=== PATIENT | female | born 1970 | race Hispanic/Latino ===

== ENCOUNTER 2018-06-28 01:22 | Emergency (ER) | payer SELFPAY ==
[2018-06-28 03:43] LABS: Absolute Lymphocytes (CBC) 2.1 K/uL (0.7-4.9); Absolute Monocytes 0.4 K/uL (0.1-1.3); Absolute Neutrophil 4.6 K/uL (1.8-8.0); Basophils % 1.1 % (0-1.3); Eosinophils % 2.3 % (0-4.4); Lymphocytes % 28.2 % (15.3-44.8); MCH 24.2 pg (27.0-35.0); MCV 75.6 fL (80-100); MPV 8.2 fL (7.6-11.3); Monocytes % 5.5 % (3.3-12.3)
[2018-06-28 03:53] LABS: Potassium 3.4 mmol/L (3.5-5.1)
[2018-06-28 04:04] LABS: Anisocytosis 2+; Blood Morphology Comment NOTED (NOT SEEN); Hypochromasia 1+; Platelet Estimate ADEQ; Urine White Blood Cell Casts OK
[2018-06-28 04:06] LABS: Urine Blood 3+ (NEG); Urine Glucose NEGATIVE (NEG); Urine Protein 2+ (NEG); Urine Specific Gravity >1.030 (1.005-1.030)
[2018-06-28] MEDS ORDERED: NA CHLORIDE 0.9% 500 ML ONE (04:25)
[2018-06-28] MEDS ORDERED: NA CHLORIDE 0.9% 1,000 ML ONE (04:25)
[2018-06-28] MEDS ORDERED: POTASSIUM CL SA 10 MEQ TAB PO ONE (05:05)
--- NOTE | 2018-06-28 07:02 | ER ---
Nurse's Notes [facility] Name: Brooke Perry Age: 48 yrs Sex: Female : 1970 Arrival Date: 06/28/2018 Time: 01:23 Bed 5 Private MD: Diagnosis: Vaginal bleeding. Anemia Presentation: 06/28 01:38 Presenting complaint: Patient states: HEAVY PERIOD WITH WEAKNESS. Transition of care: bp patient was not received from another setting of care. Onset of symptoms is unknown. Risk Assessment: Do you want to hurt yourself or someone else? Patient reports no desire to harm self or others. Initial Sepsis Screen: Does the patient meet any 2 criteria? No. Patient's initial sepsis screen is negative. Does the patient have a suspected source of infection? No. Patient's initial sepsis screen is negative. Care prior to arrival: None. 01:38 Method Of Arrival: Ambulatory bp 01:38 Acuity: ANTHONY 3 bp Triage Assessment: 01:39 General: Appears in no apparent distress. comfortable, obese, Behavior is calm, bp cooperative, appropriate for age. Pain: Denies pain. : Reports vaginal bleeding that is heavy flow. 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 - Social history:: Smoking status: Patient/guardian denies using tobacco, Patient/guardian denies using alcohol. - Ebola Screening: : Patient negative for fever greater than or equal to 101.5 degrees Fahrenheit, and additional compatible Ebola Virus Disease symptoms Patient denies exposure to infectious person Patient denies travel to an Ebola-affected area in the 21 days before illness onset No symptoms or risks identified at this time. Screenin:41 Abuse screen: Denies threats or abuse. Denies injuries from another. Nutritional bp screening: No deficits noted. Tuberculosis screening: No symptoms or risk factors identified. Fall Risk None identified. Assessment: 01:41 General: Appears in no apparent distress. comfortable, obese, Behavior is calm, bp cooperative, appropriate for age. Pain: Denies pain. Neuro: Level of Consciousness is awake, alert, obeys commands, Oriented to person, place, time, situation, Appropriate for age. Cardiovascular: No deficits noted. Respiratory: Airway is patent Respiratory effort is even, unlabored, Respiratory pattern is regular, symmetrical. GI: No deficits noted. : Reports vaginal bleeding that is heavy flow. EENT: No deficits noted. Derm: No deficits noted. Musculoskeletal: No deficits noted. Circulation, motion, and sensation intact. 01:48 Reassessment: Patient appears in no apparent distress at this time. No changes from jd3 previously documented assessment. Patient and/or family updated on plan of care and expected duration. Pain level reassessed. Patient is alert, oriented x 3, equal unlabored respirations, skin warm/dry/pink. 03:15 Reassessment: Patient appears in no apparent distress at this time. No changes from ak1 previously documented assessment. Patient and/or family updated on plan of care and expected duration. Pain level reassessed. Patient is alert, oriented x 3, equal unlabored respirations, skin warm/dry/pink. 03:15 Reassessment: pt tolerated vaginal exam well. pt informed of need to wait for US at ak1 0630.. 04:54 Reassessment: vaginal exam set up in room for ERP. ak1 06:33 Reassessment: Patient appears in no apparent distress at this time. No changes from jd3 previously documented assessment. Patient and/or family updated on plan of care and expected duration. Pain level reassessed. Patient is alert, oriented x 3, equal unlabored respirations, skin warm/dry/pink. waiting for ultrasound. Vital Signs: 01:39 BP 158 / 91; Pulse 63; Resp 14; Temp 97.2; Pulse Ox 100% ; Weight 86.18 kg; Height 5 bp ft. 7 in. (170.18 cm); 04:38 BP 162 / 88; Pulse 84; Resp 18; fu 05:00 BP 152 / 89; Pulse 86; Resp 16; Pulse Ox 100% ; fu 07:00 BP 156 / 86; Pulse 84; Resp 15; Pulse Ox 100% on R/A; Pain 0/10; hb 01:39 Body Mass Index 29.76 (86.18 kg, 170.18 cm) bp ED Course: 01:23 Patient arrived in ED. es 01:37 Lamberto Palacios MD is Attending Physician. pkl 01:38 Triage completed. bp 01:39 Arm band placed on. bp 01:41 Patient has correct armband on for positive identification. Bed in low position. Call bp light in reach. Side rails up X2. 01:48 Richie Harris, RN is Primary Nurse. jd3 03:15 Pulse ox on. NIBP on. ak1 03:51 Initial lab(s) drawn, by me, sent to lab. Inserted saline lock: 20 gauge in right rg2 antecubital area, using aseptic technique. Blood collected. 05:18 Awaiting: US at 0630. ak1 05:18 Assist provider with pelvic exam: Set up pelvic tray. Performed by Lamberto Palaciso MD Patient ak1 tolerated well. 06:57 Ultrasound completed. Patient tolerated well. aa4 06:58 US Transvaginal Study (Probe) In Process Unspecified. EDAR 07:01 Micha Hwang MD is Referral Physician. pkl 07:13 IV discontinued, intact, bleeding controlled, No redness/swelling at site. Pressure hb dressing applied. Administered Medications: 04:26 Drug: NS 0.9% 500 ml Route: IV; Rate: bolus; Site: right antecubital; fu 04:56 Follow up: Response: No adverse reaction fu 04:51 Drug: NS 0.9% 1000 ml Route: IV; Rate: 100 ml/hr; Site: right antecubital; fu 05:04 Drug: K-Dur 20 mEq Route: PO; fu 05:07 Follow up: Response: No adverse reaction fu Outcome: 07:00 Discharged to home ambulatory, with family. hb 07:00 Condition: stable 07:00 Discharge instructions given to patient, Instructed on discharge instructions, follow up and referral plans. medication usage, Demonstrated understanding of instructions, follow-up care, medications, Prescriptions given X 1. 07:01 Discharge ordered by . pkl 07:17 Patient left the ED. hb Signatures: Dispatcher [employer] EDAR Pasha Llanos [facility] Lamberto Palacios MD MD pkl Estelita Torres Amanda aa4 Leela Uriarte RN RN ak1 Breann Gold RN RN Richie Harris RN RN jd3 Umadhay, Felix, RN RN fu Peltier, Brian RN RN bp Corrections: (The following items were deleted from the chart) 04:56 04:53 Response: No adverse reaction fu fu 04:59 04:56 Response: No adverse reaction fu fu
--- NOTE | 2018-06-28 07:02 | EDPHYS ---
Physician Documentation [facility] Name: Brooke Perry Age: 48 yrs Sex: Female : 1970 Arrival Date: 06/28/2018 Time: 01:23 Bed 5 Private MD: ED Physician Lamberto Palacios HPI: 06/28 02:32 This 48 yrs old Female presents to ER via Ambulatory with complaints of pkl Dizziness, Vaginal Bleeding. 02:32 The patient presents with heavy vaginal bleeding. Onset: The symptoms/episode pkl began/occurred 3 day(s) ago. Associated signs and symptoms: Pertinent positives: dizziness and weakness. The patient has experienced similar episodes in the past, Patient said she has heavy menstrual periods for many years. 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 - Social history:: Smoking status: Patient/guardian denies using tobacco, Patient/guardian denies using alcohol. - Ebola Screening: : Patient negative for fever greater than or equal to 101.5 degrees Fahrenheit, and additional compatible Ebola Virus Disease symptoms Patient denies exposure to infectious person Patient denies travel to an Ebola-affected area in the 21 days before illness onset No symptoms or risks identified at this time. ROS: 05:00 Positive for vaginal bleeding. pkl 05:00 Eyes: Negative for injury, pain, redness, and discharge, ENT: Negative for injury, pain, and discharge, Neck: Negative for injury, pain, and swelling, Cardiovascular: Negative for chest pain, palpitations, and edema, Respiratory: Negative for shortness of breath, cough, wheezing, and pleuritic chest pain, Abdomen/GI: Negative for abdominal pain, nausea, vomiting, diarrhea, and constipation, Back: Negative for injury and pain, MS/Extremity: Negative for injury and deformity, Skin: Negative for injury, rash, and discoloration, Neuro: Negative for headache, weakness, numbness, tingling, and seizure. Exam: 05:16 Head/Face: Normocephalic, atraumatic. Eyes: Pupils equal round and reactive to light, pkl extra-ocular motions intact. Lids and lashes normal. Conjunctiva and sclera are non-icteric and not injected. Cornea within normal limits. Periorbital areas with no swelling, redness, or edema. ENT: Nares patent. No nasal discharge, no septal abnormalities noted. Tympanic membranes are normal and external auditory canals are clear. Oropharynx with no redness, swelling, or masses, exudates, or evidence of obstruction, uvula midline. Mucous membranes moist. Neck: Trachea midline, no thyromegaly or masses palpated, and no cervical lymphadenopathy. Supple, full range of motion without nuchal rigidity, or vertebral point tenderness. No Meningismus. Chest/axilla: Normal chest wall appearance and motion. Nontender with no deformity. No lesions are appreciated. Cardiovascular: Regular rate and rhythm with a normal S1 and S2. No gallops, murmurs, or rubs. Normal PMI, no JVD. No pulse deficits. Respiratory: Lungs have equal breath sounds bilaterally, clear to auscultation and percussion. No rales, rhonchi or wheezes noted. No increased work of breathing, no retractions or nasal flaring. Abdomen/GI: Soft, non-tender, with normal bowel sounds. No distension or tympany. No guarding or rebound. No evidence of tenderness throughout. Back: No spinal tenderness. No costovertebral tenderness. Full range of motion. 05:16 : Pelvic Exam: Speculum exam: mild bleeding, bimanual exam reveals an enlarged uterus, a female germination worker was present for the exam. 05:16 Musculoskeletal/extremity: Exam is negative for acute changes. 05:16 Skin: Exam negative for rash. 05:16 Neuro: Orientation: is normal, Mentation: is normal, Cranial nerves: grossly normal, Motor: is normal, Gait: is steady. Vital Signs: 01:39 BP 158 / 91; Pulse 63; Resp 14; Temp 97.2; Pulse Ox 100% ; Weight 86.18 kg; Height 5 bp ft. 7 in. (170.18 cm); 04:38 BP 162 / 88; Pulse 84; Resp 18; fu 05:00 BP 152 / 89; Pulse 86; Resp 16; Pulse Ox 100% ; fu 07:00 BP 156 / 86; Pulse 84; Resp 15; Pulse Ox 100% on R/A; Pain 0/10; hb 01:39 Body Mass Index 29.76 (86.18 kg, 170.18 cm) bp MDM: 01:37 Patient medically screened. pkl 06:50 Data reviewed: vital signs, nurses notes, lab test result(s), radiologic studies, pkl ultrasound. 06/28 01:53 Order name: Urine Dipstick--Ancillary (enter results); Complete Time: 04:07 rg2 06/28 01:53 Order name: Urine --Ancillary (enter results); Complete Time: 04:07 rg2 06/28 02:26 Order name: CBC with Diff; Complete Time: 04:07 pkl 06/28 02:26 Order name: Chem 7; Complete Time: 04:07 pkl 06/28 03:48 Order name: CBC Smear Scan; Complete Time: 04: EDMS 06/28 05:30 Order name: US Transvaginal Study (Probe) pkl Administered Medications: 04:26 Drug: NS 0.9% 500 ml Route: IV; Rate: bolus; Site: right antecubital; fu 04:56 Follow up: Response: No adverse reaction fu 04:51 Drug: NS 0.9% 1000 ml Route: IV; Rate: 100 ml/hr; Site: right antecubital; fu 05:04 Drug: K-Dur 20 mEq Route: PO; fu 05:07 Follow up: Response: No adverse reaction fu Disposition: 06/28/18 07:01 Discharged to Home. Impression: Vaginal bleeding. Anemia. - Condition is Stable. - Prescriptions for Ferrous Sulfate 325 mg (65 mg Iron) Oral Tablet - take 1 tablet by ORAL route 2 times per day; 60 tablet. - Medication Reconciliation Form, Thank You Letter, Antibiotic Education, Prescription Opioid Use form. - Follow up: Micha Hwang MD; When: 2 - 3 days; Reason: Re-evaluation by your physician. - Problem is new. - Symptoms have improved. Signatures: Dispatcher [employer] Lamberto Denson MD MD pkBreann Brown, Eloy Carty RN, RN RN fu Peltier, Brian RN RN bp Corrections: (The following items were deleted from the chart) 07:17 07:01 06/28/2018 07:01 Discharged to Home. Impression: Vaginal bleeding. Anemia. hb Condition is Stable. Forms are Medication Reconciliation Form, Thank You Letter, Antibiotic Education, Prescription Opioid Use. Follow up: Micha Hwang; When: 2 - 3 days; Reason: Re-evaluation by your physician. Problem is new. Symptoms have improved. pkl
--- NOTE | 2018-06-28 08:19 | RAD REPORT ---
EXAM DESCRIPTION: US - Transvaginal Study Probe - 06/28/2018 6:59 am CLINICAL HISTORY: Pelvic pain with vaginal bleeding COMPARISON: none FINDINGS: The uterus measures 10 x 5 x 5cm. A fibroid is not seen. The endometrial stripe measures 9 millimeters. A 2.4 centimeter right ovarian cyst is present without significant free-fluid. The left ovary was not seen. No significant free fluid is seen. IMPRESSION: 2.4 centimeter right ovarian cyst
== END 2018-06-28 07:17 | disposition home or self-care (01) ==
LOC: ER 01:22
DX: D64.9 Anemia, unspecified (principal)
CPT/HCPCS: 36415; 76830; 80048; 81003; 81025; 85025; 99284; J7030

== ENCOUNTER 2018-06-28 18:19 | Observation (INO) | payer SELFPAY ==
[2018-06-28 19:27] LABS: Hematocrit 27.9 % (36.0-45.0)
--- NOTE | 2018-06-28 20:01 | EDPHYS ---
Physician Documentation [facility] Name: Brooke Perry Age: 48 yrs Sex: Female : 1970 Arrival Date: 06/28/2018 Time: 18:21 Bed 5 Private MD: ED Physician Kale Morgan HPI: 06/28 22:06 This 48 yrs old Female presents to ER via Ambulatory with complaints of snw Vaginal Bleeding. 22:06 The patient presents with vaginal bleeding that is heavy, with clots, 3 saturated pads snw per hour. Pt seen in this ED this am. Hgb 9.9, repeat this evening 8.8. Onset: The symptoms/episode began/occurred suddenly, 3 day(s) ago. Modifying factors: The symptoms are alleviated by nothing. Associated signs and symptoms: Pertinent positives: cramping, weakness, lightheadedness. Severity of symptoms: At their worst the symptoms were moderate, severe. The patient has experienced similar episodes in the past, several times. clinic in [place]. Pt was to rec Fe transfusion x 12, rec'd 3 and then was unable to get medications. 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 - Social history:: Smoking status: Patient/guardian denies using tobacco. - Ebola Screening: : Patient negative for fever greater than or equal to 101.5 degrees Fahrenheit, and additional compatible Ebola Virus Disease symptoms Patient denies exposure to infectious person Patient denies travel to an Ebola-affected area in the 21 days before illness onset No symptoms or risks identified at this time. ROS: 22:05 Constitutional: Negative for fever, chills, and weight loss, Eyes: Negative for injury, snw pain, redness, and discharge, ENT: Negative for injury, pain, and discharge, Neck: Negative for injury, pain, and swelling, Cardiovascular: Negative for chest pain, palpitations, and edema, Respiratory: Negative for shortness of breath, cough, wheezing, and pleuritic chest pain, Back: Negative for injury and pain, : Negative for injury, discharge, and swelling, + heavy vaginal bleeding with clots MS/Extremity: Negative for injury and deformity, Skin: Negative for injury, rash, and discoloration, Neuro: Negative for headache, weakness, numbness, tingling, and seizure. 22:05 Abdomen/GI: Positive for abdominal pain. Exam: 22:04 Head/Face: Normocephalic, atraumatic. Eyes: Pupils equal round and reactive to light, snw extra-ocular motions intact. Lids and lashes normal. Conjunctiva and sclera are non-icteric and not injected, pale. Cornea within normal limits. Periorbital areas with no swelling, redness, or edema. ENT: Nares patent. No nasal discharge, no septal abnormalities noted. Tympanic membranes are normal and external auditory canals are clear. Oropharynx with no redness, swelling, or masses, exudates, or evidence of obstruction, uvula midline. Mucous membranes moist. Neck: Trachea midline, no thyromegaly or masses palpated, and no cervical lymphadenopathy. Supple, full range of motion without nuchal rigidity, or vertebral point tenderness. No Meningismus. Chest/axilla: Normal chest wall appearance and motion. Nontender with no deformity. No lesions are appreciated. Cardiovascular: Regular rate and rhythm with a normal S1 and S2. No gallops, murmurs, or rubs. Normal PMI, no JVD. No pulse deficits. Respiratory: Lungs have equal breath sounds bilaterally, clear to auscultation and percussion. No rales, rhonchi or wheezes noted. No increased work of breathing, no retractions or nasal flaring. Abdomen/GI: Soft, non-tender, with normal bowel sounds. No distension or tympany. No guarding or rebound. No evidence of tenderness throughout. Back: No spinal tenderness. No costovertebral tenderness. Full range of motion. MS/ Extremity: Pulses equal, no cyanosis. Neurovascular intact. Full, normal range of motion. Neuro: Awake and alert, GCS 15, oriented to person, place, time, and situation. Cranial nerves II-XII grossly intact. Motor strength 5/5 in all extremities. Sensory grossly intact. Cerebellar exam normal. Normal gait. Psych: Awake, alert, with orientation to person, place and time. Behavior, mood, and affect are within normal limits. 22:04 Constitutional: The patient appears alert, awake, anxious, listless, obese, pale. 22:04 Skin: Appearance: Color: pale. Vital Signs: 18:41 BP 131 / 79; Pulse 75; Resp 18; Temp 97.9; Pulse Ox 99% on R/A; Weight 86.18 kg; Height aj 5 ft. 7 in. (170.18 cm); 18:50 BP 137 / 73 LA Supine (auto/reg); Pulse 74 MON; Resp 18 S; Pulse Ox 98% on R/A; Pain jp3 4/10; 18:52 BP 133 / 83 LA Sitting (auto/reg); Pulse 76; Resp 18; Pulse Ox 98% on R/A; jp3 18:52 BP 137 / 86 LA Standing (auto/reg); Pulse 82; Resp 18 S; Pulse Ox 98% ; jp3 19:36 BP 128 / 85; Pulse 73; Pulse Ox 100% on R/A; rv 21:00 BP 133 / 84; Pulse 69; Pulse Ox 100% on R/A; rv 18:41 Body Mass Index 29.76 (86.18 kg, 170.18 cm) aj 18:50 Patient took One Midal at 1700 jp3 MDM: 18:47 Patient medically screened. snw 19:52 Data reviewed: vital signs, nurses notes. Data interpreted: Pulse oximetry: on room air snw is 100 %. Interpretation: normal. Counseling: I had a detailed discussion with the patient and/or guardian regarding: the historical points, exam findings, and any diagnostic results supporting the discharge/admit diagnosis, the presence of at least one elevated blood pressure reading (>120/80) during this emergency department visit, lab results, the need for further work-up and treatment in the hospital. Physician consultation: Sofie Ramirez MD was called at 19:52, was contacted at 19:52, regarding admission, to [facility], [facility], would like medications started, depo 150mg/ml x 1, stool softener, iron tid, regular diet. Please place in [facility] ([phone]). 06/28 18:47 Order name: Hemoglobin snw 06/28 18:47 Order name: Hematocrit; Complete Time: 19:34 snw 06/28 18:31 Order name: Orthostatics; Complete Time: 18:57 snw 06/28 18:47 Order name: Hemoglobin; Complete Time: 19:34 EDMS 06/28 19:37 Order name: Urine Dipstick--Ancillary (enter results); Complete Time: 20:17 ms 06/28 19:37 Order name: Urine --Ancillary (enter results); Complete Time: 20:17 ms Administered Medications: No medications were administered Disposition: 06/28/18 20:01 Hospitalization ordered by Sofie Ramirez for Observation. Preliminary diagnosis are Abnormal uterine and vaginal bleeding, unspecified, Anemia, unspecified. - Bed [facility] for [facility]. - Status is Observation. bb - Condition is Stable. - Problem is an acute exacerbation. - Symptoms have worsened. UTI on Admission? No Addendum: 07/13/2018 10:49 Co-signature as Attending Physician, Kale Morgan MD I agree with the assessment and k dr plan of care. Signatures: Dispatcher [employer] EDVT Lucila Ocampo, MEAT DEPARTMENT MANAGER-C MEAT DEPARTMENT MANAGER-Ckb Katina Pierre, RN Kale Hagen MD MD [facility] Mari Langley, MEAT DEPARTMENT MANAGER-C MEAT DEPARTMENT MANAGER-Csnw Sabina Olivares, RN RN bb Issac Atkinson, RN RN rv Corrections: (The following items were deleted from the chart) 06/28 20:04 20:01 Hospitalization Ordered by Sofie Ramirez MD for Observation. Preliminary diagnosis snw is Abnormal uterine and vaginal bleeding, unspecified; Anemia, unspecified. Bed requested for Telemetry/MedSurg (observation). Status is Observation. Condition is Stable. Problem is an acute exacerbation. Symptoms have worsened. UTI on Admission? No. snw 20:04 20:04 06/28/2018 20:01 Hospitalization Ordered by Sofie Ramirez MD for Observation. snw Preliminary diagnosis is Abnormal uterine and vaginal bleeding, unspecified; Anemia, unspecified. Bed requested for Telemetry/MedSurg (observation). Status is Observation. Condition is Stable. Problem is an acute exacerbation. Symptoms have worsened. UTI on Admission? No. snw 20:13 20:04 06/28/2018 20:01 Hospitalization Ordered by Sofie Ramirez MD for Observation. kb Preliminary diagnosis is Abnormal uterine and vaginal bleeding, unspecified; Anemia, unspecified. Bed requested for Telemetry/MedSurg (observation). Status is Observation. Condition is Stable. Problem is an acute exacerbation. Symptoms have worsened. UTI on Admission? No. snw 20:25 20:13 06/28/2018 20:01 Hospitalization Ordered by Sofie Ramirez MD for Observation. snw Preliminary diagnosis is Abnormal uterine and vaginal bleeding, unspecified; Anemia, unspecified. Bed requested for [facility]. Status is Observation. Condition is Stable. Problem is an acute exacerbation. Symptoms have worsened. UTI on Admission? No. kb 21:34 20:25 06/28/2018 20:01 Hospitalization Ordered by Sofie Ramirez MD for Observation. rv Preliminary diagnosis is Abnormal uterine and vaginal bleeding, unspecified; Anemia, unspecified. Bed requested for [facility]. Status is Observation. Condition is Stable. Problem is an acute exacerbation. Symptoms have worsened. UTI on Admission? No. snw 23:19 21:34 06/28/2018 20:01 Hospitalization Ordered by Sofie Ramirez MD for Observation. bb Preliminary diagnosis is Abnormal uterine and vaginal bleeding, unspecified; Anemia, unspecified. Bed requested for [facility]. Status is Observation. Condition is Stable. Problem is an acute exacerbation. Symptoms have worsened. UTI on Admission? No. rv
--- NOTE | 2018-06-28 20:01 | ER ---
Nurse's Notes [facility] Name: Brooke Perry Age: 48 yrs Sex: Female : 1970 Arrival Date: 06/28/2018 Time: 18:21 Bed 5 Private MD: Diagnosis: Abnormal uterine and vaginal bleeding, unspecified;Anemia, unspecified Presentation: 06/28 18:39 Presenting complaint: Patient states: Heavy vaginal bleeding for 2 days. Seen in ER aj yesterday for same complaint, reports bleeding has increased. Transition of care: patient was not received from another setting of care. Onset of symptoms was June 26, 2018. Risk Assessment: Do you want to hurt yourself or someone else? Patient reports no desire to harm self or others. Initial Sepsis Screen: Does the patient meet any 2 criteria? No. Patient's initial sepsis screen is negative. Does the patient have a suspected source of infection? No. Patient's initial sepsis screen is negative. Care prior to arrival: None. 18:39 Method Of Arrival: Ambulatory aj 18:39 Acuity: ANTHONY 3 aj Triage Assessment: 18:41 General: Appears in no apparent distress. comfortable, Behavior is calm, cooperative, aj appropriate for age. Pain: Complains of pain in pelvis. Neuro: Level of Consciousness is awake, alert, obeys commands, Oriented to person, place, time, situation, Appropriate for age. Respiratory: Airway is patent Respiratory effort is even, unlabored, Respiratory pattern is regular, symmetrical. : Reports vaginal bleeding that is with clots, heavy flow. Derm: Skin is intact, is healthy with good turgor, Skin is pale. 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 - Social history:: Smoking status: Patient/guardian denies using tobacco. - Ebola Screening: : Patient negative for fever greater than or equal to 101.5 degrees Fahrenheit, and additional compatible Ebola Virus Disease symptoms Patient denies exposure to infectious person Patient denies travel to an Ebola-affected area in the 21 days before illness onset No symptoms or risks identified at this time. Screenin:46 Abuse screen: Denies threats or abuse. Denies injuries from another. Nutritional rv screening: No deficits noted. Tuberculosis screening: No symptoms or risk factors identified. Fall Risk None identified. Assessment: 18:44 General: Appears in no apparent distress. comfortable, Behavior is calm, cooperative. rv Pain: Denies pain. Neuro: Level of Consciousness is awake, alert, obeys commands, Oriented to person, place, time. Cardiovascular: Capillary refill < 3 seconds. Respiratory: Airway is patent. GI: No signs and/or symptoms were reported involving the gastrointestinal system. : No signs and/or symptoms were reported regarding the genitourinary system. : Reports vaginal bleeding that is heavy flow. EENT: No signs and/or symptoms were reported regarding the EENT system. Derm: Skin is intact. Musculoskeletal: No signs and/or symptoms reported regarding the musculoskeletal system. 20:59 Reassessment: Patient appears in no apparent distress at this time. Patient and/or rv family updated on plan of care and expected duration. Pain level reassessed. Patient is alert, oriented x 3, equal unlabored respirations, skin warm/dry/pink. PATIENT IS COMFORTABLE LYING ON BED,. Vital Signs: 18:41 BP 131 / 79; Pulse 75; Resp 18; Temp 97.9; Pulse Ox 99% on R/A; Weight 86.18 kg; Height aj 5 ft. 7 in. (170.18 cm); 18:50 BP 137 / 73 LA Supine (auto/reg); Pulse 74 MON; Resp 18 S; Pulse Ox 98% on R/A; Pain jp3 4/10; 18:52 BP 133 / 83 LA Sitting (auto/reg); Pulse 76; Resp 18; Pulse Ox 98% on R/A; jp3 18:52 BP 137 / 86 LA Standing (auto/reg); Pulse 82; Resp 18 S; Pulse Ox 98% ; jp3 19:36 BP 128 / 85; Pulse 73; Pulse Ox 100% on R/A; rv 21:00 BP 133 / 84; Pulse 69; Pulse Ox 100% on R/A; rv 18:41 Body Mass Index 29.76 (86.18 kg, 170.18 cm) aj 18:50 Patient took One Midal at 1700 jp3 ED Course: 18:21 Patient arrived in ED. rg4 18:40 Triage completed. aj 18:41 Arm band placed on right wrist. Patient placed in an exam room. aj 18:46 Patient has correct armband on for positive identification. Placed in gown. Bed in low rv position. Call light in reach. Side rails up X 1. Adult w/ patient. Pulse ox on. NIBP on. 18:47 Mari Langley FNP-C is PHCP. snw 18:47 Kale Morgan MD is Attending Physician. snw 19:05 Initial lab(s) drawn, by ny, sent to lab. Inserted saline lock: 22 gauge in right jp3 forearm, using aseptic technique. Blood collected. Missed attempt(s): 22 gauge in right forearm. Bleeding controlled, band aid applied, catheter tip intact. 19:10 Urine collected: clean catch specimen, clear, blood tinged. jp3 19:26 Hemoglobin Sent. jp3 19:26 Hematocrit Sent. jp3 19:26 Hemoglobin Sent. jp3 19:59 Sofie Ramirez MD is Hospitalizing Provider. snw 21:14 No provider procedures requiring assistance completed. Patient admitted, IV remains in rv place. intact. Administered Medications: No medications were administered Outcome: 20:01 Decision to Hospitalize by Provider. snw 21:14 Admitted to L \T\ D, accompanied by [facility], via stretcher, room 270, with chart, Report rv called to IDDRISU 21:14 Condition: stable 21:14 Instructed on the need for admit. 21:34 Patient left the ED. rv 23:19 Patient left the ED. bb Signatures: Katina Pierre, RN RN Mari Leos FNP-C FNP-Csnw Sabina Olivares RN RN Dione Lr rg4 Issac Atkinson RN RN Ernst Enrique jp3
[2018-06-28 20:12] LABS: Urine Blood 3+ (NEG); Urine Glucose NEGATIVE (NEG); Urine Protein 3+ (NEG); Urine Specific Gravity 1.025 (1.005-1.030)
[2018-06-28] MEDS ORDERED: DOCUSATE NA 100 MG CAP PO PRN (21:36)
[2018-06-28] MEDS ORDERED: MEDROXYPROGEST ACET 150 MG/ML IM SCH (21:36)
[2018-06-28] MEDS: FERROUS SULFATE 325 MG TAB PO SCH (22:34)
[2018-06-28] MEDS ORDERED: ZOLPIDEM TARTRATE 5 MG TABLET PO PRN (22:35)
[2018-06-28] MEDS ORDERED: IBUPROFEN 400 MG TAB PO PRN (22:35)
[2018-06-28] MEDS ORDERED: Ringers Lactate 1,000 ML IV SCH (23:00)
[2018-06-29] MEDS: FERROUS SULFATE 325 MG TAB PO SCH (06:55)
--- NOTE | 2018-06-30 02:52 | HP ---
Date of Admission: 06/28/2018 History Of Present Illness: Brooke is a 48-year-old, 7, para 6-0-1-6, LMP June 26, 2018, w gopal presents to the hospital for heavy vaginal bleeding that has been causing anemia. The patient pre sented to the emergency room with vaginal bleeding that is heavy with clots and was saturating multip le pads. She was seen in the emergency department twice. First time she had a hemoglobin of 9.9, th e second time it was 8.8. Her bleeding is also causing some severe cramping. She denies any pain th at required any medication. She states that she was given some pills from another clinic and clue we re they told her to take some medicine for 10 days and after this, she started having heavy bleeding after the pills were completed. She states she feels a little tired, but not having any episodes of syncope. Past Medical History: Anemia. Past Surgical History: section x3 and a cholecystectomy and tubal ligation. Obstetric History: Three vaginal births, three sections, one miscarriage. Her last deliver y was in 2008. She has not seen an CLINICAL NURSING INSTRUCTOR since she last delivered. Social History: She denies tobacco, alcohol or drug use. She is . She does not work at this time. Review of Systems: Negative except for HPI. Physical Examination: Vital Signs: Blood pressure of 120/65, pulse of 63, respirations 18, temperature 97.1, O2 saturation is 100%. Pain scale is 0/10. General: Patient resting comfortably in bed. Head and Neck: Normocephalic, atraumatic. Heart: Regular rate and rhythm. Abdomen: Soft and nontender. No masses palpable. Extremities: Bilateral Lower Extremities, no clubbing, cyanosis, or edema. Vaginal: Normal external female genitalia. There is blood within the vaginal vault. No clots noted . Cervix closed, nontender. Uterus palpates normally. No masses palpable. Laboratory Findings: Hemoglobin 8.8, hematocrit 27.9. White blood cell count 7.4, platelets are 294 . Assessment And Plan: Brooke Perry is a 48-year-old, 7, para 6-0-1-6, LMP 06/26/2018, who pr esents to the emergency room for dysfunctional uterine bleeding causing anemia. Patient will be kept for observation. Vaginal ultrasound has been ordered. A 150 mg of Depo-Provera have been ordered t o be given to the patient. We will continue monitoring and no need [facility] ZIMMER Voice ID: [id number]
--- NOTE | 2018-06-30 03:10 | SS ---
Date of Discharge: 06/29/2018 Brooke Perry was kept in the hospital for observation due to heavy vaginal bleeding that was causing anemia. The patient had an ultrasound performed. Ultrasound did not find any masses. The uterus i s measuring normal size 10 x 5 x 5 cm. No fibroids were present. Endometrial lining was normal. A 2.4 cm right ovarian cyst was present which was clear. The patient was given Depo-Provera last night when she was in the emergency department and she states that her bleeding has improved significantly and she is not feeling any pain at this time. The patient recommended to follow up in the office as soon as possible once her insurance is approved so that way she can be evaluated for possible endome trial ablation. The patient voices understanding. Encouraged the patient to take iron 3 times a day . Make sure she is taking the stool softener to prevent constipation. The patient's the bleeding sh ould be managed with the Depo-Provera that she has been given. If she continues to have issues, she has been given bleeding precautions. Otherwise, the patient will follow up with me in the office in 3 weeks. MESHA Voice ID: [id number] Report ID: [id number]
== END 2018-06-29 10:30 | disposition home or self-care (01) ==
LOC: ER 18:19 → ERHOLD 20:20 → 2ND-WC 21:16
PROVIDERS: ADMIT Student in an Organized Health Care Education/Training Program; ATTEND Student in an Organized Health Care Education/Training Program
DX: N93.8 Other specified abnormal uterine and vaginal bleeding (principal); N83.201 Unspecified ovarian cyst, right side; D64.9 Anemia, unspecified
CPT/HCPCS: 36415; 81003; 81025; 85014; 85018; 99285; G0378; J1050

== ENCOUNTER 2018-07-12 04:20 | Emergency (ER) | payer SELFPAY ==
--- NOTE | 2018-07-12 05:03 | EDPHYS ---
Physician Documentation [facility] Name: Brooke Perry Age: 48 yrs Sex: Female : 1970 Arrival Date: 07/12/2018 Time: 04:23 Bed 16 Private MD: ED Physician Julián Grimes HPI: 07/12 04:59 This 48 yrs old Female presents to ER via Ambulatory with complaints of tw4 Irregular Pulse. 04:59 The patient presents with a history of irregular heart beat. Context: The symptoms tw4 occur during sleep. Onset: The symptoms/episode began/occurred today. Duration: The patient or guardian reports a single episode, that is now resolved. Modifying factors: The symptoms are aggravated by nothing. The symptoms are alleviated by nothing. Associated signs and symptoms: The patient has no apparent associated signs or symptoms. Severity of symptoms: At their worst the symptoms were moderate in the emergency department the symptoms are unchanged. The patient has not experienced similar symptoms in the past. DATABASE TESTER: 04:37 LMP N/A - bb Historical: - Allergies: 04:37 No Known Allergies; bb - Home Meds: 04:37 None [Active]; bb - PSHx: 04:37 Tubal ligation; Cholecystectomy; ; oophorectomy; bb - Immunization history:: Adult Immunizations up to date. - Social history:: Smoking status: Patient/guardian denies using tobacco, Patient/guardian denies using alcohol, street drugs. - Ebola Screening: : No symptoms or risks identified at this time. ROS: 04:59 Constitutional: Negative for fever, chills, and weight loss, Respiratory: Negative for tw4 shortness of breath, cough, wheezing, and pleuritic chest pain, Abdomen/GI: Negative for abdominal pain, nausea, vomiting, diarrhea, and constipation, Back: Negative for injury and pain, MS/Extremity: Negative for injury and deformity, Skin: Negative for injury, rash, and discoloration, Neuro: Negative for headache, weakness, numbness, tingling, and seizure. 04:59 Cardiovascular: Positive for palpitations, Negative for chest pain, edema, orthopnea. Exam: 04:59 Head/Face: Normocephalic, atraumatic. Chest/axilla: Normal chest wall appearance and tw4 motion. Nontender with no deformity. No lesions are appreciated. Cardiovascular: Regular rate and rhythm with a normal S1 and S2. No gallops, murmurs, or rubs. Normal PMI, no JVD. No pulse deficits. Respiratory: Lungs have equal breath sounds bilaterally, clear to auscultation and percussion. No rales, rhonchi or wheezes noted. No increased work of breathing, no retractions or nasal flaring. Abdomen/GI: Soft, non-tender, with normal bowel sounds. No distension or tympany. No guarding or rebound. No evidence of tenderness throughout. 04:59 Constitutional: The patient appears anxious. Vital Signs: 04:37 BP 150 / 80; Pulse 94; Resp 18 S; Temp 99(O); Pulse Ox 99% on R/A; Weight 86.18 kg (R); bb Height 5 ft. 7 in. (170.18 cm) (R); 04:37 Body Mass Index 29.76 (86.18 kg, 170.18 cm) bb MDM: 04:45 Patient medically screened. tw4 04:59 Differential diagnosis: arrythmia, dehydration, stress disorder. Data reviewed: vital tw4 signs, nurses notes. 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 Counseling: I had a detailed discussion with the patient and/or guardian regarding: the historical points, exam findings, and any diagnostic results supporting the discharge/admit diagnosis. EC:01 Rate is 87 beats/min. Rhythm is regular. QRS [place] is Normal. MI interval is normal. QRS tw4 interval is normal. QT interval is normal. No Q waves. T waves are Normal. No ST changes noted. Clinical impression: Normal ECG. Interpreted by me. Reviewed by me. Administered Medications: No medications were administered Disposition: 07/12/18 05:02 Discharged to Home. Impression: Palpitations, Hypertension to be confirmed. - Condition is Stable. - Discharge Instructions: Palpitations, Hypertension, Bnpo-[id number]. - Family Work Release, Medication Reconciliation Form, Thank You Letter, Antibiotic Education, Prescription Opioid Use form. - Follow up: Private Physician; When: Upon discharge from the Emergency Department; Reason: Further diagnostic work-up, Recheck today's complaints, Continuance of care. - Problem is new. - Symptoms have improved. Signatures: Kylah Hamilton RN RN aa1 Sabina Olivares RN RN bb Julián Grimes MD MD tw4 Corrections: (The following items were deleted from the chart) 05:23 05:02 07/12/2018 05:02 Discharged to Home. Impression: Palpitations; Hypertension to be aa1 confirmed. Condition is Stable. Forms are Medication Reconciliation Form, Thank You Letter, Antibiotic Education, Prescription Opioid Use. Follow up: Private Physician; When: Upon discharge from the Emergency Department; Reason: Further diagnostic work-up, Recheck today's complaints, Continuance of care. Problem is new. Symptoms have improved. tw4
--- NOTE | 2018-07-12 05:03 | ER ---
Nurse's Notes [facility] Name: Brooke Perry Age: 48 yrs Sex: Female : 1970 Arrival Date: 07/12/2018 Time: 04:23 Bed 16 Private MD: Diagnosis: Palpitations;Hypertension to be confirmed Presentation: 07/12 04:34 Presenting complaint: Patient states: she woke up and could feel a pulse in her left bb arm with seemed fast pt has not had this before pt was recently here for abnormal vaginal bleeding and was given a depo shot. Transition of care: patient was not received from another setting of care. Onset of symptoms was July 12, 2018. Risk Assessment: Do you want to hurt yourself or someone else? Patient reports no desire to harm self or others. Initial Sepsis Screen: Does the patient meet any 2 criteria? No. Patient's initial sepsis screen is negative. Does the patient have a suspected source of infection? No. Patient's initial sepsis screen is negative. Care prior to arrival: None. 04:34 Method Of Arrival: Ambulatory bb 04:34 Acuity: ANTHONY 4 bb ACUTE CARE ASSISTANT: 04:37 LMP N/A - bb Historical: - Allergies: 04:37 No Known Allergies; bb - Home Meds: 04:37 None [Active]; bb - PSHx: 04:37 Tubal ligation; Cholecystectomy; ; oophorectomy; bb - Immunization history:: Adult Immunizations up to date. - Social history:: Smoking status: Patient/guardian denies using tobacco, Patient/guardian denies using alcohol, street drugs. - Ebola Screening: : No symptoms or risks identified at this time. Screenin:36 Abuse screen: Denies threats or abuse. Nutritional screening: No deficits noted. jb4 Tuberculosis screening: No symptoms or risk factors identified. Fall Risk None identified. Assessment: 04:36 General: Appears in no apparent distress. comfortable, Behavior is calm, cooperative, jb4 appropriate for age. Pain: Complains of pain in abdomen Pain does not radiate. Pain currently is 4 out of 10 on a pain scale. at worst was 7 out of 10 on a pain scale. Quality of pain is described as crampy, Pain began 1 day ago. Is continuous. Neuro: Level of Consciousness is awake, alert, obeys commands, Oriented to person, place, time, situation. Cardiovascular: Denies chest pain, Heart tones S1 S2 present Patient's skin is warm and dry. Rhythm is sinus rhythm. Respiratory: Airway is patent Respiratory effort is even, unlabored, Respiratory pattern is regular, symmetrical, Breath sounds are clear bilaterally. GI: Abdomen is obese, Bowel sounds present X 4 quads. Abd is soft and non tender in left upper quadrant Abdomen is tender to palpation in right upper quadrant, right lower quadrant and left lower quadrant. : No signs and/or symptoms were reported regarding the genitourinary system. EENT: No signs and/or symptoms were reported regarding the EENT system. Derm: Skin is intact, Skin is pink, warm \T\ dry. Musculoskeletal: No signs and/or symptoms reported regarding the musculoskeletal system. 05:20 Reassessment: Patient appears in no apparent distress at this time. Patient is alert, aa1 oriented x 3, equal unlabored respirations, skin warm/dry/pink. Discussed d/c \T\ f/u instructions with pt \T\ family; denies questions or concerns at this time. Vital Signs: 04:37 BP 150 / 80; Pulse 94; Resp 18 S; Temp 99(O); Pulse Ox 99% on R/A; Weight 86.18 kg (R); bb Height 5 ft. 7 in. (170.18 cm) (R); 04:37 Body Mass Index 29.76 (86.18 kg, 170.18 cm) bb ED Course: 04:23 Patient arrived in ED. es 04:26 Terrence Luong, RN is Primary Nurse. jb4 04:36 Triage completed. bb 04:36 Patient has correct armband on for positive identification. Bed in low position. Call jb4 light in reach. Side rails up X 1. satellite project site monitor on. Pulse ox on. NIBP on. 04:36 Patient maintains SpO2 saturation greater than 95% on room air. jb4 04:37 Arm band placed on Patient placed in an exam room, in the treatment room. bb 04:45 Julián Grimes MD is Attending Physician. tw4 05:00 EKG done, by ED staff, reviewed by Julián Grimes MD. aa1 05:20 No provider procedures requiring assistance completed. Patient did not have IV access aa1 during this emergency room visit. Administered Medications: No medications were administered Outcome: 05:02 Discharge ordered by . twMojgan 05:23 Discharged to home ambulatory, with family. aa1 05:23 Condition: good 05:23 Discharge instructions given to patient, Instructed on discharge instructions, follow up and referral plans. Demonstrated understanding of instructions, follow-up care. 05:23 Patient left the ED. aa1 Signatures: Kylah Hamilton RN RN aa1 Estelita Torres Brenda RN RN Terrence Littlejohn RN RN jb4 Julián Grimes MD MD tw4
--- NOTE | 2018-07-12 16:18 | EKG ---
Test Date: 2018-07-12 Test Time: 04:38:51 Immigration Officer: ADIS MEASUREMENT RESULTS: Intervals: Rate: 87 GA: 142 QRSD: 90 QT: 376 QTc: 452 Electra: P: 30 GA: 142 QRS: -2 T: -8 INTERPRETIVE STATEMENTS: Normal sinus rhythm Normal ECG Compared to ECG 08/09/2017 10:48:24 ST (T wave) deviation no longer present Electronically Signed On 07-12-18 16:14:38 CDT by Romel Flanagan
== END 2018-07-12 05:23 | disposition home or self-care (01) ==
LOC: ER 04:20
DX: R00.2 Palpitations (principal)
CPT/HCPCS: 93005; 99284

== ENCOUNTER 2018-07-15 14:09 | Emergency (ER) | payer SELFPAY ==
[2018-07-15] MEDS ORDERED: NA CHLORIDE 0.9% 1,000 ML ONE (15:29)
[2018-07-15 15:36] LABS: Absolute Lymphocytes (CBC) 0.5 K/uL (0.7-4.9); Absolute Monocytes 0.4 K/uL (0.1-1.3); Absolute Neutrophil 10.2 K/uL (1.8-8.0); Basophils % 0.3 % (0-1.3); Eosinophils % 0.8 % (0-4.4); Hematocrit 34.2 % (36.0-45.0); Lymphocytes % 4.7 % (15.3-44.8); MCH 26.6 pg (27.0-35.0); MCV 83.2 fL (80-100); MPV 8.1 fL (7.6-11.3); Monocytes % 3.8 % (3.3-12.3); RBC Red Blood Cell Count 4.11 M/uL (3.86-4.86)
[2018-07-15 15:46] LABS: Urine Bacteria <20 /HPF (<20); Urine Culture Reflex Order NOT NEEDED; Urine RBC >50 /HPF (NONE SEEN)
[2018-07-15 15:48] LABS: Albumin 3.9 g/dL (3.4-5.0); Bilirubin Direct 0.1 mg/dL (0-0.2); Bilirubin Total 0.5 mg/dL (0.2-1.0); Protein, Total 8.6 g/dL (6.4-8.2)
[2018-07-15 16:59] LABS: Platelet Estimate ADEQ
[2018-07-15 17:00] LABS: Anisocytosis 2+; Blood Morphology Comment NOTED (NOT SEEN)
[2018-07-15 17:06] LABS: Macrocytosis 2+
--- NOTE | 2018-07-15 17:10 | EDPHYS ---
Physician Documentation [facility] Name: Brooke Perry Age: 48 yrs Sex: Female : 1970 Arrival Date: 07/15/2018 Time: 14:13 Bed 20 Private MD: ED Physician Kale Morgan HPI: 07/15 15:19 This 48 yrs old Female presents to ER via Ambulatory with complaints of jmm Diarrhea. 15:19 The patient presents to the emergency department with diarrhea. Onset: The jmm symptoms/episode began/occurred today. Possible causes: unknown. This is a 48 year old female with a history of anemia that presents to the ED with multuiple episodes of diarrhea today. Patient denies abdominal pain, denies recent travel, denies recent abx use, denies infectious exposure. . 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 - Social history:: Smoking status: Patient/guardian denies using tobacco. - Ebola Screening: : No symptoms or risks identified at this time. ROS: 15:19 Constitutional: Negative for fever, chills, and weight loss, Cardiovascular: Negative jmm for chest pain, palpitations, and edema, Respiratory: Negative for shortness of breath, cough, wheezing, and pleuritic chest pain. 15:19 MS/Extremity: Negative for injury and deformity, Skin: Negative for injury, rash, and discoloration, Neuro: Negative for headache, weakness, numbness, tingling, and seizure. 15:19 Abdomen/GI: Positive for diarrhea. 15:19 All other systems are negative. Exam: 15:19 Head/Face: atraumatic. jmm 15:19 Constitutional: The patient appears in no acute distress, alert, awake. 15:19 Cardiovascular: Rate: normal, Rhythm: regular. 15:19 Respiratory: the patient does not display signs of respiratory distress, Respirations: normal, Breath sounds: are clear throughout. 15:19 Abdomen/GI: Inspection: abdomen appears normal, Bowel sounds: normal, Palpation: abdomen is soft and non-tender, in all quadrants. 15:19 Back: ROM is normal. 15:19 Musculoskeletal/extremity: ROM: intact in all extremities. 15:19 Skin: Appearance: Color: normal in color. 15:19 Neuro: Orientation: is normal, Mentation: is normal, Memory: is normal. 15:19 Psych: Behavior/mood is pleasant, cooperative. Vital Signs: 14:19 BP 120 / 79; Pulse 88; Resp 16; Temp 97.5; Pulse Ox 100% on R/A; Weight 86.18 kg; la1 15:23 BP 118 / 73; Pulse 79; Resp 16; Pulse Ox 100% ; mh5 16:09 BP 120 / 63; Pulse 78; Resp 18; Pulse Ox 100% on R/A; Pain 0/10; em 17:10 BP 117 / 75; Pulse 68; Resp 18; Pulse Ox 100% on R/A; Pain 0/10; em MDM: 15:19 Patient medically screened. [facility] 17:04 Data reviewed: vital signs, nurses notes. Counseling: I had a detailed discussion with maryse the patient and/or guardian regarding: the historical points, exam findings, and any diagnostic results supporting the discharge/admit diagnosis, the need for outpatient follow up, to return to the emergency department if symptoms worsen or persist or if there are any questions or concerns that arise at home. 17:12 ED course: Patient has no abdominal pain on palpation on reevaluation. patient states jmm feel better. Patient given strict return precautions. Patient understood and agrees with the plan of care. . 07/15 14:56 Order name: Amylase, Serum; Complete Time: 16:00 [facility] 07/15 14:56 Order name: Basic Metabolic Panel; Complete Time: 16:00 [facility] 07/15 14:56 Order name: CBC with Diff; Complete Time: 17:12 [facility] 07/15 14:56 Order name: Creatinine for Radiology; Complete Time: 16:00 [facility] 07/15 14:56 Order name: Hepatic Function; Complete Time: 16:00 [facility] 07/15 14:56 Order name: Lipase; Complete Time: 16:00 [facility] 07/15 14:56 Order name: Urine Microscopic Only; Complete Time: 16:00 [facility] 07/15 14:56 Order name: IV Saline Lock; Complete Time: 15:26 [facility] 07/15 14:56 Order name: Labs collected and sent; Complete Time: 15:26 [facility] 07/15 14:56 Order name: Urine Dipstick-Ancillary (obtain specimen); Complete Time: 15:11 [facility] 07/15 15:20 Order name: Urine Dipstick--Ancillary (enter results) 07/15 15:20 Order name: Urine --Ancillary (enter results) 07/15 16:03 Order name: Manual Differential; Complete Time: 17:12 EDMS Administered Medications: 15:31 Drug: NS 0.9% 1000 ml Route: IV; Rate: 1 bolus; Site: left antecubital; em 17:00 Follow up: Response: No adverse reaction; IV Status: Completed infusion; IV Intake: em 1000ml Disposition: 18:35 Co-signature as Attending Physician, Kale Morgan MD I agree with the assessment and kdr plan of care. Disposition: 07/15/18 17:09 Discharged to Home. Impression: Diarrhea, unspecified. - Condition is Stable. - Discharge Instructions: Food Choices to Help Relieve Diarrhea, Adult, Diarrhea, Adult. - Prescriptions for Zofran 4 mg Oral Tablet - take 1 tablet by ORAL route every 12 hours As needed; 20 tablet. - Medication Reconciliation Form, Thank You Letter, Antibiotic Education, Prescription Opioid Use form. - Follow up: Joseluis Vargas MD; When: As needed; Reason: Recheck today's complaints, Continuance of care, Re-evaluation by your physician. - Notes: Please follow up with your primary care provider or gastroenterology for further evaluation. Please return to the Emergency Department if you develop abdominal pain, vomiting, or fever. Signatures: Dispatcher [employer] [facility] Kale Morgan MD MD kdr Mickail, Joel, PA PA [facility] Wagner Tee, INSPECTOR COLD WORKING INSPECTOR COLD WORKING em Gray Rowley RN RN la1 Corrections: (The following items were deleted from the chart) 17:32 17:09 07/15/2018 17:09 Discharged to Home. Impression: Diarrhea, unspecified. Condition em is Stable. Forms are Medication Reconciliation Form, Thank You Letter, Antibiotic Education, Prescription Opioid Use. Follow up: Joseluis Vargas; When: As needed; Reason: Recheck today's complaints, Continuance of care, Re-evaluation by your physician. [facility]
--- NOTE | 2018-07-15 17:10 | ER ---
Nurse's Notes [facility] Name: Brooke Perry Age: 48 yrs Sex: Female : 1970 Arrival Date: 07/15/2018 Time: 14:13 Bed 20 Private MD: Diagnosis: Diarrhea, unspecified Presentation: 07/15 14:18 Presenting complaint: Patient states: Diarrhea and vomiting since this morning, mild la1 abd pain. Transition of care: patient was not received from another setting of care. Onset of symptoms was July 15, 2018. Risk Assessment: Do you want to hurt yourself or someone else? Patient reports no desire to harm self or others. Initial Sepsis Screen: Does the patient meet any 2 criteria? No. Patient's initial sepsis screen is negative. Does the patient have a suspected source of infection? No. Patient's initial sepsis screen is negative. Care prior to arrival: None. 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 - Social history:: Smoking status: Patient/guardian denies using tobacco. - Ebola Screening: : No symptoms or risks identified at this time. Screenin:45 Abuse screen: Denies threats or abuse. Nutritional screening: No deficits noted. em Tuberculosis screening: No symptoms or risk factors identified. Fall Risk None identified. Assessment: 14:50 General: Appears in no apparent distress. comfortable, Behavior is calm, cooperative. em Pain: Denies pain. Neuro: Level of Consciousness is awake, alert, obeys commands, Oriented to person, place, time, situation, Reports weakness Denies dizziness. Cardiovascular: Denies chest pain, lightheadedness, palpitations, shortness of breath, Capillary refill < 3 seconds Patient's skin is warm and dry. Respiratory: Airway is patent Respiratory effort is even, unlabored, Respiratory pattern is regular, symmetrical. GI: Abdomen is flat, Bowel sounds present X 4 quads. Abd is soft and non tender X 4 quads. Reports diarrhea, vomiting. : No signs and/or symptoms were reported regarding the genitourinary system. EENT: No signs and/or symptoms were reported regarding the EENT system. Derm: Skin is intact, Skin is pink, warm \T\ dry. Musculoskeletal: Range of motion: intact in all extremities. 16:10 Reassessment: Patient appears in no apparent distress at this time. Patient and/or em family updated on plan of care and expected duration. Pain level reassessed. Patient is alert, oriented x 3, equal unlabored respirations, skin warm/dry/pink. Patient denies pain at this time. 17:20 Reassessment: Patient appears in no apparent distress at this time. Patient and/or em family updated on plan of care and expected duration. Pain level reassessed. Patient is alert, oriented x 3, equal unlabored respirations, skin warm/dry/pink. Patient denies pain at this time. Patient states feeling better. Vital Signs: 14:19 BP 120 / 79; Pulse 88; Resp 16; Temp 97.5; Pulse Ox 100% on R/A; Weight 86.18 kg; la1 15:23 BP 118 / 73; Pulse 79; Resp 16; Pulse Ox 100% ; mh5 16:09 BP 120 / 63; Pulse 78; Resp 18; Pulse Ox 100% on R/A; Pain 0/10; em 17:10 BP 117 / 75; Pulse 68; Resp 18; Pulse Ox 100% on R/A; Pain 0/10; em ED Course: 14:13 Patient arrived in ED. mr 14:18 Triage completed. la1 14:19 Arm band placed on left wrist. [facility] 14:52 Brooks Baker [facility] 14:52 Kale Morgan MD is Attending Physician. [facility] 15:00 Initial lab(s) drawn, by nj, sent to lab. Inserted saline lock: 20 gauge in left em antecubital area, using aseptic technique. Blood collected. 15:05 Wagner Tee LVN is Primary Nurse. 15:11 Urine collected: clean catch specimen, khadra colored. [facility] 15:11 Urine Microscopic Only Sent. [facility] 15:21 Patient has correct armband on for positive identification. Bed in low position. Call [facility] light in reach. Adult w/ patient. Pulse ox on. NIBP on. 15:21 Urine --Ancillary (enter results) Sent. [facility] 15:21 Urine Dipstick--Ancillary (enter results) Sent. 5 17:07 Joseluis Vargas MD is Referral Physician. [facility] 17:30 No provider procedures requiring assistance completed. IV discontinued, intact, em bleeding controlled, No redness/swelling at site. Pressure dressing applied. Administered Medications: 15:31 Drug: NS 0.9% 1000 ml Route: IV; Rate: 1 bolus; Site: left antecubital; em 17:00 Follow up: Response: No adverse reaction; IV Status: Completed infusion; IV Intake: em 1000ml Intake: 17:00 IV: 1000ml; Total: 1000ml. em Outcome: 17:09 Discharge ordered by . [facility] 17:31 Discharged to home ambulatory, with family. em 17:31 Condition: good 17:31 Discharge instructions given to patient, Instructed on discharge instructions, follow up and referral plans. Demonstrated understanding of instructions, follow-up care, medications, Prescriptions given X 1. 17:32 Patient left the ED. em Signatures: Brooks Baker PA PA Krista Quan mr Wagner Tee, GARAGE DOOR INSTALLER GARAGE DOOR INSTALLER Gray Rowley, RN RN Krista Bustillos [facility]
[2018-07-15 17:59] LABS: Urine Blood 3+ (NEG); Urine Glucose NEGATIVE (NEG); Urine Protein 2+ (NEG); Urine pH 5.5 (5.0-7.0)
== END 2018-07-15 17:32 | disposition home or self-care (01) ==
LOC: ER 14:09
DX: R19.7 Diarrhea, unspecified (principal)
CPT/HCPCS: 36415; 80048; 80076; 81003; 81015; 81025; 82150; 83690; 85025; 96360; 99284; J7030

== ENCOUNTER 2018-07-19 21:23 | Emergency (ER) | payer SELFPAY ==
--- NOTE | 2018-07-19 22:16 | EDPHYS ---
Physician Documentation [facility] Name: Brooke Perry Age: 48 yrs Sex: Female : 1970 Arrival Date: 07/19/2018 Time: 21:28 Bed 17 Private MD: ED Physician Jason Escalona HPI: 07/19 21:40 This 48 yrs old Female presents to ER via Ambulatory with complaints of Fever, rn Sore Throat. 21:40 The patient reports fever, not measured (subjective). Onset: The symptoms/episode rn began/occurred yesterday. Modifying factors: there are no obvious modifying factors. Associated signs and symptoms:. Severity of symptoms: At their worst the symptoms were mild in the emergency department the symptoms are unchanged. It is unknown whether or not the patient has had similar symptoms in the past. Reports fever, chills, muscle aches, + sore throat, daughter was sick recently but more with GI symptoms. . 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 - Social history:: Smoking status: Patient/guardian denies using tobacco. - Ebola Screening: : Patient negative for fever greater than or equal to 101.5 degrees Fahrenheit, and additional compatible Ebola Virus Disease symptoms Patient denies exposure to infectious person Patient denies travel to an Ebola-affected area in the 21 days before illness onset No symptoms or risks identified at this time. - Family history:: not pertinent. - Hospitalizations: : No recent hospitalization is reported. ROS: 21:40 Constitutional: + fever and chills Eyes: Negative for injury, pain, redness, and manufacturing engineering intern, ENT: + sore throat Neck: Negative for injury, pain, and swelling, Cardiovascular: Negative for chest pain, palpitations, and edema, Respiratory: Negative for shortness of breath, cough, wheezing, and pleuritic chest pain, Abdomen/GI: Negative for abdominal pain, nausea, vomiting, diarrhea, and constipation, Back: Negative for injury and pain, MS/Extremity: + muscle aches Skin: Negative for injury, rash, and discoloration, Neuro: Negative for headache, numbness, tingling, and seizure. Exam: 21:40 Constitutional: This is a well developed, well nourished patient who is awake, alert, rn and in no acute distress. Head/Face: Normocephalic, atraumatic. Eyes: Pupils equal round and reactive to light, extra-ocular motions intact. Lids and lashes normal. Conjunctiva and sclera are non-icteric and not injected. Cornea within normal limits. Periorbital areas with no swelling, redness, or edema. ENT: + mild pharyngeal erythema with tonsillar exudate on right side Neck: + tender right sided cervical LAD, no meningismus Cardiovascular: Regular rate and rhythm, No pulse deficits. Respiratory: Clear bilateral breath sounds, no increased work of breathing MS/ Extremity: Pulses equal, no cyanosis. Neurovascular intact. Full, normal range of motion. Equal circumference. Neuro: Awake and alert, GCS 15, oriented to person, place, time, and situation. Cranial nerves II-XII grossly intact. Motor strength 5/5 in all extremities. Sensory grossly intact. Cerebellar exam normal. Normal gait. Vital Signs: 21:29 BP 139 / 79; Pulse 93; Resp 16; Temp 99.6; Pulse Ox 100% on R/A; Weight 86.18 kg; aj Height 5 ft. 7 in. (170.18 cm); 22:03 BP 115 / 68; Pulse 87; Resp 18; Pulse Ox 100% ; ea 21:29 Body Mass Index 29.76 (86.18 kg, 170.18 cm) aj MDM: 21:31 Patient medically screened. rn 22:14 Differential diagnosis: bacterial infection. Data reviewed: vital signs, nurses notes, filer metal patterns test result(s), and as a result, I will discharge patient. Counseling: I had a detailed discussion with the patient and/or guardian regarding: the historical points, exam findings, and any diagnostic results supporting the discharge/admit diagnosis, lab results, the need for outpatient follow up, to return to the emergency department if symptoms worsen or persist or if there are any questions or concerns that arise at home. Response to treatment: the patient's symptoms have mildly improved after treatment, and as a result, I will discharge patient. Special discussion: I discussed with the patient/guardian in detail that at this point there is no indication for admission to the hospital. It is understood, however, that if the symptoms persist or worsen the patient needs to return immediately for re-evaluation. 07/19 21:30 Order name: Strep; Complete Time: 22:11 jana 07/19 21:36 Order name: Flu rn 07/19 21:36 Order name: Influenza Screen (A ; Complete Time: 22:11 EDMS Administered Medications: 22:22 Drug: Bicillin L-A 1.2 million units Route: IM; Site: right gluteus; ea 22:40 Follow up: Response: No adverse reaction ea Disposition: 07/19/18 22:15 Discharged to Home. Impression: Streptococcal tonsillitis. - Condition is Stable. - Discharge Instructions: Strep Throat. - Medication Reconciliation Form, Thank You Letter, Antibiotic Education, Prescription Opioid Use, Family Work Release form. - Follow up: Private Physician; When: As needed; Reason: Recheck today's complaints, Re-evaluation by your physician. - Problem is new. - Symptoms have improved. Signatures: Dispatcher [employer] EDKatina Solis RN RN aj Nieto, Roman, MD MD rn Antunez, Elena, RN RN ea Corrections: (The following items were deleted from the chart) 21:43 21:40 Constitutional: This is a well developed, well nourished patient who is awake, rn alert, and in no acute distress. Head/Face: Normocephalic, atraumatic. Eyes: Pupils equal round and reactive to light, extra-ocular motions intact. Lids and lashes normal. Conjunctiva and sclera are non-icteric and not injected. Cornea within normal limits. Periorbital areas with no swelling, redness, or edema. ENT: + mild pharyngeal erythema with tonsillar exudate on right side Neck: + tender right sided cervical LAD Cardiovascular: Regular rate and rhythm, No pulse deficits. Respiratory: Clear bilateral breath sounds, no increased work of breathing MS/ Extremity: Pulses equal, no cyanosis. Neurovascular intact. Full, normal range of motion. Equal circumference. Neuro: Awake and alert, GCS 15, oriented to person, place, time, and situation. Cranial nerves II-XII grossly intact. Motor strength 5/5 in all extremities. Sensory grossly intact. Cerebellar exam normal. Normal gait. rn 22:47 22:15 07/19/2018 22:15 Discharged to Home. Impression: Streptococcal tonsillitis. ea Condition is Stable. Forms are Medication Reconciliation Form, Thank You Letter, Antibiotic Education, Prescription Opioid Use. Follow up: Private Physician; When: As needed; Reason: Recheck today's complaints, Re-evaluation by your physician. Problem is new. Symptoms have improved. rn
--- NOTE | 2018-07-19 22:16 | ER ---
Nurse's Notes [facility] Name: Brooke Perry Age: 48 yrs Sex: Female : 1970 Arrival Date: 07/19/2018 Time: 21:28 Bed 17 Private MD: Diagnosis: Streptococcal tonsillitis Presentation: 07/19 21:28 Presenting complaint: Patient states: Sore throat and fever since this AM. Transition aj of care: patient was not received from another setting of care. Onset of symptoms was July 19, 2018. Risk Assessment: Do you want to hurt yourself or someone else? Patient reports no desire to harm self or others. Initial Sepsis Screen: Does the patient meet any 2 criteria? No. Patient's initial sepsis screen is negative. Does the patient have a suspected source of infection? No. Patient's initial sepsis screen is negative. Care prior to arrival: None. 21:28 Method Of Arrival: Ambulatory aj 21:28 Acuity: ANTHONY 4 aj Triage Assessment: 21:29 General: Appears in no apparent distress. comfortable, Behavior is calm, cooperative, aj appropriate for age. Pain: Complains of pain in left aspect of posterior pharynx and right aspect of posterior pharynx. EENT: Reports pain when swallowing. Neuro: Level of Consciousness is awake, alert, obeys commands, Oriented to person, place, time, situation, Appropriate for age. Respiratory: Airway is patent Respiratory effort is even, unlabored. Derm: Skin is intact, is healthy with good turgor, Skin is pink, warm \T\ dry. normal. 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 - Social history:: Smoking status: Patient/guardian denies using tobacco. - Ebola Screening: : Patient negative for fever greater than or equal to 101.5 degrees Fahrenheit, and additional compatible Ebola Virus Disease symptoms Patient denies exposure to infectious person Patient denies travel to an Ebola-affected area in the 21 days before illness onset No symptoms or risks identified at this time. - Family history:: not pertinent. - Hospitalizations: : No recent hospitalization is reported. Screenin:43 Abuse screen: Denies threats or abuse. Nutritional screening: No deficits noted. ea Tuberculosis screening: No symptoms or risk factors identified. Fall Risk None identified. Assessment: 21:41 General: Appears uncomfortable, Behavior is calm, cooperative, appropriate for age. ea Pain: Complains of pain in throat Pain currently is 6 out of 10 on a pain scale. Quality of pain is described as burning, aching, Pain began this AM. Neuro: Level of Consciousness is awake, alert, obeys commands, Oriented to person, place, time, situation. Cardiovascular: Heart tones S1 S2 present Patient's skin is warm and dry. Respiratory: Airway is patent Respiratory effort is even, unlabored, Respiratory pattern is regular, symmetrical, Breath sounds are clear bilaterally. GI: Abdomen is non-distended, Bowel sounds present X 4 quads. : No signs and/or symptoms were reported regarding the genitourinary system. EENT: Throat is reddened. Derm: Skin is pink, warm \T\ dry. 22:04 Reassessment: Patient and/or family updated on plan of care and expected duration. Pain ea level reassessed. Patient is alert, oriented x 3, equal unlabored respirations, skin warm/dry/pink. 22:44 Reassessment: Patient and/or family updated on plan of care and expected duration. Pain ea level reassessed. Patient is alert, oriented x 3, equal unlabored respirations, skin warm/dry/pink. Discharge instructions given to patient, verbalized the understanding of instructions. Vital Signs: 21:29 BP 139 / 79; Pulse 93; Resp 16; Temp 99.6; Pulse Ox 100% on R/A; Weight 86.18 kg; aj Height 5 ft. 7 in. (170.18 cm); 22:03 BP 115 / 68; Pulse 87; Resp 18; Pulse Ox 100% ; ea 21:29 Body Mass Index 29.76 (86.18 kg, 170.18 cm) aj ED Course: 21:28 Patient arrived in ED. aj 21:29 Triage completed. aj 21:29 Arm band placed on right wrist. Patient placed in an exam room. aj 21:31 Jason Escalona MD is Attending Physician. rn 21:31 Fatou Gil RN is Primary Nurse. ea 21:44 Patient has correct armband on for positive identification. Bed in low position. Call ea light in reach. Side rails up X 1. 22:46 No provider procedures requiring assistance completed. Patient did not have IV access ea during this emergency room visit. Administered Medications: 22:22 Drug: Bicillin L-A 1.2 million units Route: IM; Site: right gluteus; ea 22:40 Follow up: Response: No adverse reaction ea Outcome: 22:15 Discharge ordered by . rn 22:46 Discharged to home ambulatory, with family. ea 22:46 Condition: improved 22:46 Discharge instructions given to patient, Instructed on discharge instructions, follow up and referral plans. Demonstrated understanding of instructions, follow-up care. 22:47 Patient left the ED. ea Signatures: Katina Pierre RN RN aj Nieto, Roman, MD MD rn Antunez, Elena, RN RN ea
[2018-07-19] MEDS ORDERED: PEN G BENZ LA 1.2MU/2ML SYRINGE IM ONE (22:24)
== END 2018-07-19 22:47 | disposition home or self-care (01) ==
LOC: ER 21:23
DX: J03.00 Acute streptococcal tonsillitis, unspecified (principal)
CPT/HCPCS: 87081; 87804; 96372; 99283; J0561

== ENCOUNTER 2018-07-25 20:39 | Emergency (ER) | payer SELFPAY ==
--- NOTE | 2018-07-25 21:30 | RAD REPORT ---
EXAM DESCRIPTION: RAD - Foot Right 2 View - 07/25/2018 9:14 pm CLINICAL HISTORY: Right foot pain FINDINGS: The second proximal phalanx is dislocated laterally. No fracture is seen
[2018-07-25] MEDS ORDERED: LIDOCAINE 1% MPF 2 ML AMPULE ONE (21:42)
[2018-07-25] MEDS ORDERED: BUPIVACAINE 0.5% PF 10 ML VIAL ONE (21:42)
[2018-07-25] MEDS ORDERED: HYDROCODONE/APAP 5/325 MG TAB ONE (21:43)
--- NOTE | 2018-07-26 00:08 | ER ---
Nurse's Notes [facility] Name: Brooke Perry Age: 48 yrs Sex: Female : 1970 Arrival Date: 07/25/2018 Time: 20:40 Bed 8 Private MD: Diagnosis: Dislocation of interphalangeal joint of right lesser toe(s) Presentation: 07/25 20:55 Presenting complaint: Patient states: she was at home and tripped and fell sitting down bb and injuring her 2nd toe on her right foot. Pt denies hitting her head or LOC. Transition of care: patient was not received from another setting of care. Onset of symptoms was July 25, 2018. Risk Assessment: Do you want to hurt yourself or someone else? Patient reports no desire to harm self or others. Initial Sepsis Screen: Does the patient meet any 2 criteria? No. Patient's initial sepsis screen is negative. Does the patient have a suspected source of infection? No. Patient's initial sepsis screen is negative. Care prior to arrival: None. 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 - Social history:: Smoking status: Patient/guardian denies using tobacco, Patient/guardian denies using alcohol, street drugs. - Ebola Screening: : No symptoms or risks identified at this time. Screenin:06 Abuse screen: Denies threats or abuse. Nutritional screening: No deficits noted. ea Tuberculosis screening: No symptoms or risk factors identified. Fall Risk Fall in past 12 months (25 points). Assessment: 21:06 General: Appears uncomfortable, Behavior is cooperative. Pain: Complains of pain in ea right second toe and Right second toenail Pain currently is 5 out of 10 on a pain scale. Quality of pain is described as aching. Neuro: Level of Consciousness is awake, alert, obeys commands, Oriented to person, place, time, situation. Cardiovascular: Patient's skin is warm and dry. Respiratory: Airway is patent Respiratory effort is even, unlabored, Respiratory pattern is regular, symmetrical. GI: No signs and/or symptoms were reported involving the gastrointestinal system. : No signs and/or symptoms were reported regarding the genitourinary system. EENT: No signs and/or symptoms were reported regarding the EENT system. Derm: Skin is pink, warm \T\ dry. Musculoskeletal: Circulation, motion, and sensation intact. Injury Description: Deformity sustained to right second toe and Right second toenail is angulated, was sustained less than 30 minutes ago. 23:05 Reassessment: Patient and/or family updated on plan of care and expected duration. Pain ea level reassessed. Patient is alert, oriented x 3, equal unlabored respirations, skin warm/dry/pink. Provider at bedside, reduced right second toe, pt tolerated well. Vital Signs: 20:56 BP 170 / 95; Pulse 100; Resp 20 S; Temp 98.6(O); Pulse Ox 100% on R/A; Weight 86.18 kg bb (R); Height 5 ft. 7 in. (170.18 cm) (R); Pain 5/10; 21:00 BP 150 / 80; Pulse 79; Resp 18; Pulse Ox 100% ; ea 22:50 BP 145 / 78; Pulse 68; Resp 18; Pulse Ox 99% on R/A; ea 0912 00:21 BP 132 / 80; Pulse 70; Resp 18 S; Pulse Ox 99% ; ea 07/25 20:56 Body Mass Index 29.76 (86.18 kg, 170.18 cm) bb ED Course: 07/25 20:40 Patient arrived in ED. ds1 20:42 [facility]C [facility]. snw 20:42 Lamberto Palacios MD is Attending Physician. snw 20:43 Richie Harris RN is Primary Nurse. jd3 20:56 Triage completed. bb 20:56 Arm band placed on Patient placed in an exam room, on a stretcher, on pulse oximetry. bb Family accompanied patient. 21:06 Patient has correct armband on for positive identification. Bed in low position. Call ea light in reach. Side rails up X 1. 21:11 X-ray completed. Portable x-ray completed in exam room. Patient tolerated procedure bb2 well. 21:11 XRAY Foot RIGHT 2 View In Process Unspecified. EDMS 23:52 XRAY Foot RIGHT 2 View In Process Unspecified. EDMS 07/26 00:20 No provider procedures requiring assistance completed. Patient did not have IV access lp1 during this emergency room visit. Administered Medications: 07/25 21:52 Drug: [place] 5 mg-325 mg 1 tabs Route: PO; ea 22:30 Follow up: Response: No adverse reaction; Pain is decreased ea 23:10 Drug: Lidocaine (1 %) 5 mg {Note: administered by provider.} Route: Infiltration; ea 23:10 Drug: Marcaine (0.25 %) 1 amp {Note: administered by provider.} Route: Infiltration; ea Outcome: 07/26 00:07 Discharge ordered by . snw 00:20 Discharged to home via wheelchair, with family. ea 00:20 Condition: improved 00:20 Condition: improved 00:20 Discharge instructions given to patient, Instructed on discharge instructions, follow up and referral plans. medication usage, Demonstrated understanding of instructions, follow-up care, medications, Prescriptions given X 1. 00:22 Patient left the ED. ea Signatures: Dispatcher [employer] EDTX Mari Langley, URGENT CARE TECHNICIAN-C URGENT CARE TECHNICIAN-Csnw Brenda Nava ds1 Sabina Olivares RN Tova West RN RN lp1 Fatou Gil RN RN ea Davies, Jonathon, RN RN Isaura Tang bb2
--- NOTE | 2018-07-26 00:08 | EDPHYS ---
Physician Documentation [facility] Name: Brooke Perry Age: 48 yrs Sex: Female : 1970 Arrival Date: 07/25/2018 Time: 20:40 Bed 8 Private MD: ED Physician Lamberto Palacios HPI: 07/26 00:09 This 48 yrs old Female presents to ER via Wheelchair with complaints of Fall snw Injury. 00:09 Details of fall: The patient fell from an upright position, while walking. Onset: The snw symptoms/episode began/occurred suddenly. Associated injuries: The patient sustained right second toe, decreased range of motion, deformity, painful injury. Severity of symptoms: At their worst the symptoms were severe. The patient has not experienced similar symptoms in the past. It is unknown whether or not the patient has recently seen a physician. no LOC, no other injury noted. 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 - Social history:: Smoking status: Patient/guardian denies using tobacco, Patient/guardian denies using alcohol, street drugs. - Ebola Screening: : No symptoms or risks identified at this time. ROS: 07/26 00:10 Constitutional: Negative for fever, chills, and weight loss, Eyes: Negative for injury, snw pain, redness, and discharge, ENT: Negative for injury, pain, and discharge, Neck: Negative for injury, pain, and swelling, Cardiovascular: Negative for chest pain, palpitations, and edema, Respiratory: Negative for shortness of breath, cough, wheezing, and pleuritic chest pain, Abdomen/GI: Negative for abdominal pain, nausea, vomiting, diarrhea, and constipation, Back: Negative for injury and pain, : Negative for injury, bleeding, discharge, and swelling, Skin: Negative for injury, rash, and discoloration, Neuro: Negative for headache, weakness, numbness, tingling, and seizure. MS/extremity: Positive for injury or acute deformity, decreased range of motion, deformity, pain, of the right second toe. Exam: 00:10 Constitutional: This is a well developed, well nourished patient who is awake, alert, snw and in no acute distress. Head/Face: Normocephalic, atraumatic. Eyes: Pupils equal round and reactive to light, extra-ocular motions intact. Lids and lashes normal. Conjunctiva and sclera are non-icteric and not injected. Cornea within normal limits. Periorbital areas with no swelling, redness, or edema. ENT: Nares patent. No nasal discharge, no septal abnormalities noted. Tympanic membranes are normal and external auditory canals are clear. Oropharynx with no redness, swelling, or masses, exudates, or evidence of obstruction, uvula midline. Mucous membranes moist. Neck: Trachea midline, no thyromegaly or masses palpated, and no cervical lymphadenopathy. Supple, full range of motion without nuchal rigidity, or vertebral point tenderness. No Meningismus. Chest/axilla: Normal chest wall appearance and motion. Nontender with no deformity. No lesions are appreciated. Cardiovascular: Regular rate and rhythm with a normal S1 and S2. No gallops, murmurs, or rubs. Normal PMI, no JVD. No pulse deficits. Respiratory: Lungs have equal breath sounds bilaterally, clear to auscultation and percussion. No rales, rhonchi or wheezes noted. No increased work of breathing, no retractions or nasal flaring. Abdomen/GI: Soft, non-tender, with normal bowel sounds. No distension or tympany. No guarding or rebound. No evidence of tenderness throughout. Back: No spinal tenderness. No costovertebral tenderness. Full range of motion. Skin: Warm, dry with normal turgor. Normal color with no rashes, no lesions, and no evidence of cellulitis. Neuro: Awake and alert, GCS 15, oriented to person, place, time, and situation. Cranial nerves II-XII grossly intact. Motor strength 5/5 in all extremities. Sensory grossly intact. Cerebellar exam normal. Normal gait. Psych: Awake, alert, with orientation to person, place and time. Behavior, mood, and affect are within normal limits. 00:10 Musculoskeletal/extremity: Extremities: grossly normal except: noted in the right second toe: contusion, decreased ROM, deformity, ecchymosis, tenderness, ROM: as noted, Circulation is intact in all extremities. Sensation intact. Vital Signs: 07/25 20:56 BP 170 / 95; Pulse 100; Resp 20 S; Temp 98.6(O); Pulse Ox 100% on R/A; Weight 86.18 kg bb (R); Height 5 ft. 7 in. (170.18 cm) (R); Pain 5/10; 21:00 BP 150 / 80; Pulse 79; Resp 18; Pulse Ox 100% ; ea 22:50 BP 145 / 78; Pulse 68; Resp 18; Pulse Ox 99% on R/A; ea 07/26 00:21 BP 132 / 80; Pulse 70; Resp 18 S; Pulse Ox 99% ; ea 07/25 20:56 Body Mass Index 29.76 (86.18 kg, 170.18 cm) bb Procedures: 07/25 23:10 Reduction: of the right second toe, using traction, Immobilized with venecia tape. snw Patient tolerated well. Nerve block: (digital) of right second toe Medication: Lidocaine 1% without epinephrine Marcaine 0.5%, Amount: 4 mls were injected, Effect: the patient has resolution of the pain, Performed by Mari SALINAS-Maureen Patient tolerated well. MDM: 20:43 Patient medically screened. snw 07/26 00:08 Data reviewed: vital signs, nurses notes. Data interpreted: Pulse oximetry: on room air snw is 99 %. Interpretation: normal. Counseling: I had a detailed discussion with the patient and/or guardian regarding: the historical points, exam findings, and any diagnostic results supporting the discharge/admit diagnosis, the presence of at least one elevated blood pressure reading (>120/80) during this emergency department visit, radiology results, the need for outpatient follow up, to return to the emergency department if symptoms worsen or persist or if there are any questions or concerns that arise at home. Special discussion: I have referred the patient to see his PCP for further evaluation of high blood pressure. Based on the history and exam findings, there is no indication for further emergent testing or inpatient evaluation. I discussed with the patient/guardian the need to see the assembler rubber footwear for further evaluation of the symptoms. I discussed with the patient/guardian the need to see the primary care provider for further evaluation of the symptoms. 07/25 21:06 Order name: XRAY Foot RIGHT 2 View; Complete Time: 22:38 ea 07/25 23:10 Order name: XRAY Foot RIGHT 2 View ea Administered Medications: 07/25 21:52 Drug: [place] 5 mg-325 mg 1 tabs Route: PO; ea 22:30 Follow up: Response: No adverse reaction; Pain is decreased ea 23:10 Drug: Lidocaine (1 %) 5 mg {Note: administered by provider.} Route: Infiltration; ea 23:10 Drug: Marcaine (0.25 %) 1 amp {Note: administered by provider.} Route: Infiltration; ea Disposition: 07/26 04:20 Co-signature as Attending Physician, Lamberto Palacios MD. pkl Disposition: 07/26/18 00:07 Discharged to Home. Impression: Dislocation of interphalangeal joint of right lesser toe(s). - Condition is Stable. - Discharge Instructions: Cast or Splint Care, Adult, Toe Dislocation. - Prescriptions for Diclofenac Sodium 75 mg Oral Tablet Sustained Release - take 1 tablet by ORAL route 2 times per day; 30 tablet. - Medication Reconciliation Form, Thank You Letter, Antibiotic Education, Prescription Opioid Use, Family Work Release form. - Follow up: Private Physician; When: 2 - 3 days; Reason: Recheck today's complaints, Continuance of care, Re-evaluation by your physician. Follow up: Emergency Department; When: As needed; Reason: Worsening of condition. Signatures: Dispatcher [employer] Lamberto Denson MD MD pkl Therrien, Shelly, CONTRACTOR FIELD HAULING-C CONTRACTOR FIELD HAULING-Csnw Sabina Olivares RN RN bb Antunez, Elena, RN RN ea Corrections: (The following items were deleted from the chart) 00:22 00:07 07/26/2018 00:07 Discharged to Home. Impression: Dislocation of interphalangeal ea joint of right lesser toe(s). Condition is Stable. Forms are Medication Reconciliation Form, Thank You Letter, Antibiotic Education, Prescription Opioid Use. Follow up: Private Physician; When: 2 - 3 days; Reason: Recheck today's complaints, Continuance of care, Re-evaluation by your physician. Follow up: Emergency Department; When: As needed; Reason: Worsening of condition. snw
--- NOTE | 2018-07-26 08:16 | RAD REPORT ---
EXAM DESCRIPTION: RAD - Foot Right 2 View - 07/25/2018 11:52 pm CLINICAL HISTORY: follow up reduction of second toe Pain and swelling COMPARISON: Foot Right 2 View dated 07/25/2018 FINDINGS: Previously noted second toe dislocation has been reduced. No fracture is identified. No ag gressive marrow lesion.
== END 2018-07-26 00:22 | disposition home or self-care (01) ==
LOC: ER 20:39
PROC: 0SSPXZZ Reposition Right Toe Phalangeal Joint, External Approach (ICD-10-PCS; principal; 2018-07-26)
DX: S93.114A Dislocation of interphalangeal joint of right lesser toe(s), initial encounter (principal); W19.XXXA Unspecified fall, initial encounter; Y93.01 Activity, walking, marching and hiking; Y92.9 Unspecified place or not applicable
CPT/HCPCS: 64450; 99284; J2001

== ENCOUNTER 2019-11-10 22:06 | Emergency (ER) | payer SELFPAY ==
[2019-11-10] MEDS ORDERED: DIPHENHYDRAMINE 25 MG TAB/CAP ONE (22:50)
[2019-11-10] MEDS ORDERED: ACETAMINOPHEN 500 MG TAB ONE (22:50)
[2019-11-10] MEDS ORDERED: predniSONE 20 MG TAB ONE (22:50)
[2019-11-10] MEDS ORDERED: FAMOTIDINE 20 MG TAB ONE (22:51)
[2019-11-10 23:16] LABS: Arterial Blood Carboxyhemoglob 0.6 % (0-1.5); Blood Gas Oxyhemoglobin 95.2 % (94-97); Blood O2 Saturation 96.7 % (92-98.5)
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
[2019-11-11 00:40] VITALS: TEMP 98.2; O2SAT 97
[2019-11-11 00:41] VITALS: BP 157/93
== END 2019-11-11 00:10 | disposition home or self-care (01) ==
LOC: ER 22:06
DX: L50.9 Urticaria, unspecified (principal)
CPT/HCPCS: 82805; 99283; J7512